=== PATIENT | female | born 1990 | race Two or more races ===

== ENCOUNTER 2019-03-10 16:05 | Emergency (ER) | payer OTHER ==
[~2019-03-10] VITALS: Ht 149.9 cm; Wt 55.8 kg
== END 2019-03-10 18:27 | disposition home or self-care (01) ==
LOC: ER 16:05
DX: J06.9 Acute upper respiratory infection, unspecified (principal)

== ENCOUNTER 2019-04-12 08:06 | Emergency (ER) | payer OTHER ==
[~2019-04-12] VITALS: Ht 149.9 cm; Wt 55.8 kg
== END 2019-04-12 18:31 | disposition home or self-care (01) ==
LOC: ER 08:06
DX: K52.89 Other specified noninfective gastroenteritis and colitis (principal)

== ENCOUNTER 2023-01-21 15:03 | Emergency (ER) | payer OTHER ==
[~2023-01-21] VITALS: Ht 149.9 cm; Wt 65.3 kg
[2023-01-21 17:57] LABS: HEMATOCRIT 39.3 % (36.0-45.00); HEMOGLOBIN 13.2 g/dL (12.0-15.00); MEAN CELL VOLUME 85.4 fL (80.00-100.00); MEAN CORPUSCULAR HEMOGLOBIN 28.8 pg (27.00-32.0); MEAN CORPUSCULAR HGB CONC 33.7 g/dl (32.0-36.0); PLATELET COUNT 306 K/uL (150-450); RED CELL DISTRIBUTION WIDTH 13.4 % (11.5-14.5)
[2023-01-21] MEDS ORDERED: NASAL MIST126 ML NASAL (19:26)
[2023-01-21] MEDS ORDERED: MUCINEX DM ER1 EACH PO (19:26)
[2023-01-21] MEDS ORDERED: ZYRTEC10 MG PO (19:26)
== END 2023-01-21 19:39 | disposition home or self-care (01) ==
LOC: ER 15:03
PROVIDERS: General Practice
DX: J06.9 Acute upper respiratory infection, unspecified (principal); Z20.822 Contact with and (suspected) exposure to COVID-19

== ENCOUNTER → 2023-01-24 | Emergency (ER) | payer OTHER ==
[~2023-01-24] VITALS: Ht 149.9 cm; Wt 65.3 kg
[~2023-01-24] MED LIST: ALBUTEROL1.25 MG/3 IH; MEDROLPACK PO; MUCINEX DM ER1 EACH PO; NASAL MIST126 ML NASAL; ZYRTEC10 MG PO
[2023-01-24 19:49] LABS: HEMATOCRIT 39.8 % (36.0-45.00); HEMOGLOBIN 13.7 g/dL (12.0-15.00); MEAN CELL VOLUME 84.1 fL (80.00-100.00); MEAN CORPUSCULAR HGB CONC 34.5 g/dl (32.0-36.0); PLATELET COUNT 331 K/uL (150-450); RED BLOOD COUNT 4.73 M/uL (4.00-6.00); RED CELL DISTRIBUTION WIDTH 13.9 % (11.5-14.5)
== END | disposition home or self-care (01) ==
LOC: ER 17:25
PROVIDERS: General Practice
DX: J06.9 Acute upper respiratory infection, unspecified (principal)

== ENCOUNTER 2024-10-08 12:09 | Outpatient (CLI) | payer OTHER ==
[2024-10-08 10:40] VITALS: BP 101/66
[2024-10-08] MEDS ORDERED: ACETAMINOPHEN 500 MG GEL..CAP PO ONE (12:15)
[2024-10-08] MEDS ORDERED: RINGERS SOLUTION,LACTATED 1,000 ML IV SCH (12:15)
[2024-10-08] MEDS ORDERED: NASAL MIST126 ML (12:17)
[2024-10-08] MEDS ORDERED: DIALYVITE 800-1 EACH PO (12:17)
[2024-10-08] MEDS ORDERED: PRENATAL + DHA1 EAC1 PO (12:17)
[2024-10-08 13:28] LABS: BASO % 0.5 % (0.1-1.2); EOS # 0.19 (0.04-0.54); EOS % 1.7 % (0.7-7.0); LYMPH # 1.61 (1.18-3.74); LYMPH % 14.2 % (19.3-53.1); MEAN PLATELET VOLUME 11.20 fl (9.4-12.4); MONO # 0.52 (0.24-0.82); MONO % 4.6 % (4.7-12.5); NEUT # 8.85 (1.56-6.13); NEUT % 78.4 % (34.0-71.1); RED CELL DISTRIBUTION WIDTH 13.9 % (11.6-14.4)
[2024-10-08 13:29] LABS: URINE APPEARANCE Clear; URINE BILIRRUBIN Negative (NEGATIVE); URINE BLOOD Negative; URINE COLOR Yellow; URINE GLUCOSE Negative (NEGATIVE); URINE KETONE Negative (NEGATIVE); URINE LEUKOCYTE Negative; URINE NITRATE Negative; URINE PROTEIN Trace (NEGATIVE); URINE UROBILINOGEN 0.2 E.U./dl
[2024-10-08 13:30] LABS: URINE BACTERIA 2937.4 uL (0.0-1933); URINE EPITHELIAL CELLS 91.9 uL (0.0-38.8); URINE RBC 17.4 uL (0.0-20.8); URINE WBC 55.3 uL (0.0-23.2)
[2024-10-08 13:33] LABS: URINE CAST 0.87 uL (0.0-1.40)
[2024-10-08 15:20] VITALS: BP 92/57
[2024-10-08 18:38] VITALS: BP 92/57
== END 2024-10-08 18:38 | disposition home or self-care (01) ==
LOC: OBS/DEL 12:09
PROVIDERS: ATTEND Obstetrics & Gynecology
DX: O26.892 Other specified pregnancy related conditions, second trimester (principal); O26.849 Uterine size-date discrepancy, unspecified trimester; O36.8199 Decreased fetal movements, unspecified trimester, other fetus; O60.00 Preterm labor without delivery, unspecified trimester; O44.00 Complete placenta previa NOS or without hemorrhage, unspecified trimester; S70.01XA Contusion of right hip, initial encounter; S30.1XXA Contusion of abdominal wall, initial encounter; S80.11XA Contusion of right lower leg, initial encounter; W10.9XXA Fall (on) (from) unspecified stairs and steps, initial encounter; Z3A.25 25 weeks gestation of pregnancy